=== PATIENT | female | born 1945 | race Caucasian/White ===

== ENCOUNTER → 2016-06-22 | Outpatient (CLI) | payer MEDICARE, OTHER ==
--- NOTE | 2016-06-22 15:45 | REP ---
Clinical: Acute bronchitis . Comparison: None. Technique: PA and lateral. Findings: The mediastinum and cardiac silhouette are normal. The lung mckenna demonstrate chronic-appearing changes without focal consolidation, effusion, or pneumothorax. The skeletal structures are intact and normal. Impression: No focal consolidation. Signed by Parth Santana MD 06/22/2016 03:36 P
== END ==
LOC: M WUC 15:22
PROVIDERS: ATTEND Physician Assistant
DX: J02.9 Acute pharyngitis, unspecified (principal)

== ENCOUNTER → 2016-08-14 | Outpatient (REF) | payer MEDICARE, OTHER ==
[2016-08-14 12:24] LABS: BASO % 0.5 % (0.0-1.0); EOS # 0.2 K/mm3 (0.0-0.50); EOS % 1.9 % (0.0-3.0); LARGE UNSTAINED CELL # 0.2 K/mm3 (0.0-0.4); LARGE UNSTAINED CELL % 1.9 % (0.0-4.0); LYMPH # 1.3 K/mm3 (1.5-4.5); LYMPH % 12.2 % (24.0-44.0); MEAN CORPUSCULAR HGB CONC 33.9 g/dl (32.0-36.5); MEAN CORPUSCULAR VOLUME 100.4 fl (80.0-96.0); MONO # 0.7 K/mm3 (0.0-0.8); MONO % 7.6 % (0.0-5.0); NEUTROPHILS # 6.7 K/mm3 (1.8-7.7); NEUTROPHILS % 75.9 % (36.0-66.0); PLATELET COUNT, AUTOMATED 159 k/mm3 (150-450); RED CELL DISTRIBUTION WIDTH 14.8 % (11.5-14.5); WHITE BLOOD COUNT 8.9 K/mm3 (4.0-10.0)
[2016-08-14 13:00] LABS: ALBUMIN 3.6 GM/DL (3.2-5.2); ALBUMIN/GLOBULIN RATIO 1.16 (1.00-1.93); CALCIUM LEVEL 9.6 MG/DL (8.8-10.2); CREATININE FOR GFR 1.17 MG/DL (0.55-1.02); FREE T4 1.11 NG/DL (0.76-1.46); GLOMERULAR FILTRATION RATE 48.7 (>39); POTASSIUM SERUM 4.5 MEQ/L (3.5-5.1); TOTAL PROTEIN 6.7 GM/DL (6.4-8.2)
== END ==
LOC: M LABDRAW1 11:20
PROVIDERS: ATTEND Family Medicine
DX: E78.5 Hyperlipidemia, unspecified (principal); E03.9 Hypothyroidism, unspecified; E55.9 Vitamin D deficiency, unspecified; N18.3 Chronic kidney disease, stage 3 (moderate)

== ENCOUNTER → 2016-08-21 | Outpatient (CLI) | payer MEDICARE, OTHER ==
[~2016-08-21] MED LIST: ISOVUE-370 76% 100ML VIAL (Q9967) As Ordered ONE
--- NOTE | 2016-08-21 16:23 | REP ---
Clinical: Cough. Technique: Axial contrast enhanced images from the thoracic inlet to the upper abdomen using 100 ml Isovue 370 intravenous contrast material with coronal and sagittal re-formations. Findings: Chronic age-related interstitial changes are appreciated along with mild bronchiectasis and minimal basilar scarring. No consolidation, nodule, or mass lesion. No pleural effusion/reaction or pneumothorax. Mediastinum demonstrates minimal atherosclerotic changes to the thoracic aorta and moderate atherosclerotic changes to the coronary arteries without cardiomegaly or pericardial effusion. No significant adenopathy. Surrounding musculoskeletal structures demonstrate age-related degenerative changes. Limited upper abdomen demonstrates normal bilateral adrenal glands. Impression: 1. Mild chronic age-related interstitial changes with mild lower lobe bronchiectasis and minimal basilar scarring. 2. No acute mediastinal or pleuroparenchymal process. 3. Atherosclerotic changes to the coronary arteries without cardiomegaly. Signed by Parth Santana MD 08/21/2016 04:15 P
== END ==
LOC: M RAD 14:18
PROVIDERS: ATTEND Family Medicine
DX: J47.9 Bronchiectasis, uncomplicated (principal)
CPT/HCPCS: 71260; Q9967

== ENCOUNTER → 2016-09-12 | Outpatient (CLI) | payer MEDICARE, OTHER | LOC: M CARPUL 12:36 | PROVIDERS: ATTEND Physician Assistant Medical | DX: J44.9 Chronic obstructive pulmonary disease, unspecified (principal); R94.2 Abnormal results of pulmonary function studies ==

== ENCOUNTER → 2016-10-03 | Outpatient (CLI) | payer MEDICARE, OTHER ==
[~2016-10-03] MED LIST changes: +ASPI81TA85 PO; +BREO1INH3 INH; +CALC600T60 PO; +FISH1000 PO; +HYDR25TA6 PO; -ISOVUE-370 76% 100ML VIAL (Q9967) As Ordered ONE; +LEVO75TA4 PO; +METO100T5 PO; +MULTCAP8 PO; +SPIR50TA2 PO; +[UNRECOGNIZED DRUG - CODE] PO
--- NOTE | 2016-10-03 15:00 | REP ---
DIGITAL DIAGNOSTIC UNILATERAL RIGHT BREAST MAMMOGRAPHY AND FOCUSED RIGHT BREAST SONOGRAPHY: HISTORY: 6-month follow-up of ultrasound-guided needle biopsy of the right breast in the retroareolar region. Pathologic results intraductal papilloma. Comparison mammography is from February 20, 2016. Comparison sonography is from February 20, 2020 16 as well. MAMMOGRAPHIC FINDINGS: CC and MLO views of the right breast were obtained. The nodular density observed previously is no longer apparent. Scattered fibroglandular elements are seen. No nodular density is seen. No spiculation or architectural distortion is observed. No microcalcification is seen. SONOGRAPHIC FINDINGS: The right breast is scanned in the retroareolar region. A few slightly prominent ducts are seen. No cyst or cystic lesion is observed. No evidence of acoustic shadowing or architectural distortion seen. IMPRESSION: BIRADS category II benign right breast imaging. Repeat bilateral screening mammography recommended annually. BI-RADS/ACR category 2 mammogram. Benign finding(s). Routine annual screening mammography (for women over age 40). This mammogram was interpreted with the aid of an FDA-approved computer-aided detection system. The patient states she/he had a clinical breast exam in July 2016 The patient letter being requested is M2. Signed by Raj Ibrahmi MD 10/03/2016 05:03 P
== END ==
LOC: M RAD 08:31
PROVIDERS: ATTEND Family Medicine
DX: D24.1 Benign neoplasm of right breast (principal)
CPT/HCPCS: 76642; G0206

== ENCOUNTER → 2016-10-10 | Outpatient (CLI) | payer MEDICARE, OTHER ==
[~2016-10-10] VITALS: Ht 162.6 cm; Wt 99.8 kg
[~2016-10-10] MED LIST changes: +LIDOCAINE 2% INJ 100 MG/5 ML SDV (FOR ANES.) As Ordered ONE; +NS 1,000 ML IV ONE; +PROPOFOL 200 MG/20 ML VIAL As Ordered ONE; +SIMETHICONE 40MG/0.6ML DROPS 30ML As Ordered ONE
--- NOTE | 2016-10-10 08:58 | ROOR ---
Patient Name: Jania Leung Procedure Date: 10/10/2016 8:30 AM Date of : 1945 Age: 71 Room: [facility] Gender: Female Note Status: Finalized Procedure: Total Colonoscopy to Cecum Indications: Colon cancer screening in patient at increased risk: Colorectal cancer in mother, Last colonoscopy: 2011 Providers: Bob Ramirez MD Referring MD: Bandar Arrieta MD Requesting Provider: Medicines: Monitored Anesthesia Care Complications: No immediate complications. Procedure: Pre-Anesthesia Assessment: - The heart rate, respiratory rate, oxygen saturations, blood pressure, adequacy of pulmonary ventilation, and response to care were monitored throughout the procedure. The Colonoscope was introduced through the anus and advanced to the cecum, identified by appendiceal orifice and ileocecal valve. The colonoscopy was performed without difficulty. The patient tolerated the procedure well. The quality of the bowel preparation was excellent. Findings: The perianal and digital rectal examinations were normal. Multiple small and large-mouthed diverticula were found in the recto-sigmoid colon, sigmoid colon and descending colon. The exam was otherwise without abnormality on direct and retroflexion views. Impression: - Diverticulosis in the recto-sigmoid colon, in the sigmoid colon and in the descending colon. - The examination was otherwise normal on direct and retroflexion views. - No specimens collected. - The exam was otherwise normal to the cecum. Recommendation: - Patient has a contact number available for emergencies. The signs and symptoms of potential delayed complications were discussed with the patient. Return to normal activities tomorrow. Written discharge instructions were provided to the patient. - High fiber diet. - Discharge patient to home. - Continue present medications. - Repeat colonoscopy in 5 years for screening purposes. - Return to referring physician. - The findings and recommendations were discussed with the patient's family. Bob Ramirez MD Bob Ramirez MD 10/10/2016 8:57:47 AM This report has been signed electronically. Number of Addenda: 0 Note Initiated On: 10/10/2016 8:30 AM Estimated Blood Loss: Estimated blood loss: none.
[2016-10-10 09:22] VITALS: BP 121/67
== END ==
LOC: M OPP 07:30
PROVIDERS: ATTEND Internal Medicine Gastroenterology
DX: Z12.11 Encounter for screening for malignant neoplasm of colon (principal); Z80.0 Family history of malignant neoplasm of digestive organs; K57.30 Diverticulosis of large intestine without perforation or abscess without bleeding; I10 Essential (primary) hypertension; E03.9 Hypothyroidism, unspecified; J44.9 Chronic obstructive pulmonary disease, unspecified; M19.90 Unspecified osteoarthritis, unspecified site; Z87.891 Personal history of nicotine dependence; Z79.82 Long term (current) use of aspirin; Z79.899 Other long term (current) drug therapy

== ENCOUNTER → 2016-12-17 | Outpatient (CLI) | payer MEDICARE, OTHER ==
[~2016-12-17] MED LIST changes: -LIDOCAINE 2% INJ 100 MG/5 ML SDV (FOR ANES.) As Ordered ONE; -NS 1,000 ML IV ONE; -PROPOFOL 200 MG/20 ML VIAL As Ordered ONE; -SIMETHICONE 40MG/0.6ML DROPS 30ML As Ordered ONE
--- NOTE | 2016-12-17 12:41 | REP ---
PA and lateral chest: Comparisons 06/22/2016. There are no acute infiltrates or effusions. There are no masses. There is chronic interstitial coarsening, unchanged, compatible with chronic lung disease. Cardiac size is upper normal. The marshall, mediastinum, and bony thorax are unremarkable. Impression: Chronic mild interstitial coarsening compatible with chronic lung disease. No acute infiltrates or effusions. No masses. Signed by Nahid Austin MD 12/17/2016 12:32 P
== END ==
LOC: M WUC 11:09
PROVIDERS: ATTEND Physician Assistant
DX: R05 Cough (principal)

== ENCOUNTER → 2017-01-21 | Outpatient (REF) | payer MEDICARE, OTHER ==
[2017-01-21 18:40] LABS: VITAMIN B12 LEVEL 667 PG/ML (247-911)
[2017-01-21 18:43] LABS: ALBUMIN 3.8 GM/DL (3.2-5.2); ALBUMIN/GLOBULIN RATIO 1.19 (1.00-1.93); ALKALINE PHOSPHATASE 70 U/L (45-117); ALT/SGPT 30 U/L (12-78); ANION GAP 6 MEQ/L (8-16); AST/SGOT 27 U/L (15-37); BILIRUBIN,TOTAL 2.2 MG/DL (0.2-1.0); BLOOD UREA NITROGEN 31 MG/DL (7-18); CALCIUM LEVEL 9.8 MG/DL (8.8-10.2); CARBON DIOXIDE LEVEL 31 MEQ/L (21-32); CHLORIDE LEVEL 101 MEQ/L (98-107); CREATININE FOR GFR 1.28 MG/DL (0.55-1.02); GLOMERULAR FILTRATION RATE 43.8 (>39); GLUCOSE, FASTING 79 MG/DL (83-110); MAGNESIUM LEVEL 2.1 MG/DL (1.8-2.4); POTASSIUM SERUM 4.6 MEQ/L (3.5-5.1); SODIUM LEVEL 138 MEQ/L (136-145)
[2017-01-21 20:45] LABS: MEAN CORPUSCULAR HEMOGLOBIN 33.4 pg (27.0-33.0); MEAN CORPUSCULAR HGB CONC 33.6 g/dl (32.0-36.5); MEAN CORPUSCULAR VOLUME 99.4 fl (80.0-96.0); RED CELL DISTRIBUTION WIDTH 14.2 % (11.5-14.5)
[2017-01-21 22:14] LABS: EOSINOPHILS 1 % (0-5)
[2017-01-21 22:37] LABS: CBCMD ORDERED? YES (YES)
[2017-01-22 11:06] LABS: PRETREATED FOLATE FOR RBCFOL 15.9 NG/ML
[2017-01-22 11:43] LABS: ALBUMIN 4.14 GM/DL (3.29-5.55); ALBUMIN % 59.2 % (55.8-66.1); GAMMA GLOBULIN % 14.2 % (11.1-18.8)
== END ==
LOC: M SFHCPLAZ 14:50
PROVIDERS: ATTEND Family Medicine
DX: I10 Essential (primary) hypertension (principal); R05 Cough; Z23 Encounter for immunization

== ENCOUNTER → 2017-01-22 | Outpatient (REF) | payer MEDICARE, OTHER | LOC: M SFHCPLAZ 10:38 | PROVIDERS: ATTEND Physician Assistant Medical | DX: I25.10 Atherosclerotic heart disease of native coronary artery without angina pectoris (principal) ==

== ENCOUNTER → 2017-02-18 | Outpatient (CLI) | payer MEDICARE, OTHER ==
--- NOTE | 2017-02-19 09:58 | REP ---
Clinical: Pulmonary arterial hypertension. Technique: Axial contrast enhanced images from the thoracic inlet to the upper abdomen using 100 ml Isovue 370 intravenous contrast material with multiplanar MIP re-formations. Comparison: 08/21/2016. Findings: Satisfactory enhancement of the pulmonary vasculature is achieved and no filling defects are identified to suggest pulmonary embolus. The pulmonary arteries are enlarged and prominent in appearance. The main pulmonary artery measures approximately 34 mm diameter while the right and left main pulmonary arteries measure approximately 28 mm diameter each with significantly prominent branch vessels extending throughout the bilateral lung mckenna. While mild cardiomegaly suggested, the right ventricle is normal in appearance and contour without significant myocardial thickening abnormality by CT. The thoracic aorta appears normal and descending aorta measures 2.6 cm maximal diameter. The bilateral lung mckenna are relatively well aerated and without significant interstitial disease. No pleural effusion. No pneumothorax. Tracheobronchial tree is patent. No significant axillary, hilar, or mediastinal adenopathy. Surrounding musculoskeletal structures are intact. Impression: Enlarged, engorged pulmonary arteries including main pulmonary artery measuring 34 mm diameter are suggestive of idiopathic pulmonary arterial hypertension. There is no evidence for pulmonary embolus, pulmonary parenchymal interstitial disease or abnormality to the right cardiac ventricle. Signed by Parth Santana MD 02/19/2017 09:50 A
== END ==
LOC: M RAD 17:03
PROVIDERS: ATTEND Family Medicine
DX: I27.20 Pulmonary hypertension, unspecified (principal)

== ENCOUNTER → 2017-02-20 | Outpatient (REF) | payer MEDICARE, OTHER ==
[2017-02-20 12:50] LABS: ALBUMIN 3.7 GM/DL (3.2-5.2); ALBUMIN/GLOBULIN RATIO 1.16 (1.00-1.93); ALKALINE PHOSPHATASE 64 U/L (45-117); ALT/SGPT 23 U/L (12-78); ANION GAP 7 MEQ/L (8-16); AST/SGOT 23 U/L (7-37); BILIRUBIN,DIRECT 0.5 MG/DL (0.0-0.2); BILIRUBIN,TOTAL 2.3 MG/DL (0.2-1.0); BLOOD UREA NITROGEN 29 MG/DL (7-18); CALCIUM LEVEL 9.7 MG/DL (8.8-10.2); CARBON DIOXIDE LEVEL 31 MEQ/L (21-32); CHLORIDE LEVEL 102 MEQ/L (98-107); CREATININE FOR GFR 1.25 MG/DL (0.55-1.02); GLUCOSE, FASTING 104 MG/DL (83-110); MAGNESIUM LEVEL 2.6 MG/DL (1.8-2.4); POTASSIUM SERUM 4.6 MEQ/L (3.5-5.1); SODIUM LEVEL 140 MEQ/L (136-145); TOTAL PROTEIN 6.9 GM/DL (6.4-8.2)
== END ==
LOC: M SFHCPLAZ 10:21
PROVIDERS: ATTEND Family Medicine
DX: I27.21 Secondary pulmonary arterial hypertension (principal); I10 Essential (primary) hypertension; R06.09 Other forms of dyspnea

== ENCOUNTER → 2017-03-06 | Outpatient (CLI) | payer MEDICARE, OTHER ==
--- NOTE | 2017-03-06 10:03 | REP ---
COMPLETE ABDOMINAL ULTRASOUND: 03/06/2017 COMPARISON: CT angio chest 02/18/2017 showing portion of the liver. CLINICAL HISTORY: Pulmonary artery hypertension, epigastric pain. FINDINGS: Sonographic evaluation shows the liver homogeneous in echotexture, mildly hyperechoic that may reflect some underlying fatty infiltration. I see no focal hepatic mass or intrahepatic biliary dilatation. Gallbladder has no wall thickening, mass, or stone. There is no pericholecystic fluid. No mass or tenderness on exam. Common duct is 5.5 mm without a filling defect. Pancreas is limited in evaluation due to some gas shadowing but without mass, adjacent fluid collection, or dilated duct. The spleen measures of 12.9 x 10.3 x 5.1 cm and is homogeneous. Not grossly enlarged by visual inspection, no discrete splenic lesion. The right kidney 9.4 x 5.9 x 4.8 cm. The left kidney 11.1 x 4.7 x 4.8 cm. Neither kidney shows a focal lesion. The aorta is not visualized due to extensive gas. IMPRESSION: 1. There may be some mild fatty infiltration with the gallbladder intact and the common duct 5.5 mm without a filling defect or dilatation. 2. Pancreas grossly unremarkable on the portion seen, and the spleen is visually unremarkable with homogeneous echoes and no lesion visible its size slightly large by splenic index measurement, as described above. 3. Bilateral kidneys without acute finding. No ascites. Splenic index mildly elevated, 677. Normal range less than 480. Signed by Nikolai Antonio MD 03/06/2017 07:31 P
== END ==
LOC: M RAD 06:56
PROVIDERS: ATTEND Family Medicine
DX: I27.20 Pulmonary hypertension, unspecified (principal)

== ENCOUNTER → 2017-03-08 | Outpatient (CLI) | payer MEDICARE, OTHER ==
--- NOTE | 2017-03-08 14:04 | REP ---
Chest two views HISTORY: Pulmonary hypertension Comparison: 12/17/2016 An increase in interstitial markings is present in the lungs consistent with chronic interstitial change. The cardiac silhouette is enlarged. The pulmonary vasculature is normal in appearance. The bony structure is intact. IMPRESSION: 1. Chronic interstitial change. 2. Cardiomegaly. Signed by Lalo Galloway MD 03/08/2017 01:55 P
--- NOTE | 2017-03-08 17:04 | REP ---
HISTORY: Dyspnea. There are no prior ventilation perfusion lung scans for comparison. Previous CT angio chest 02/18/2017 showed no evidence of a pulmonary embolus. After the inhalation of 1 mCi of technetium 99m DTPA a ventilation lung study was performed. After the intravenous administration of 5.4 mCi of technetium 99m MAA a perfusion lung study was performed. There are no ventilation perfusion mismatches that would be considered consistent with pulmonary emboli. There are a few matching defects in each lung. IMPRESSION: Indeterminate V/Q scan as described above. Signed by Isaias Ash DO 03/08/2017 07:07 P
== END ==
LOC: M RAD 12:30
PROVIDERS: ATTEND Family Medicine
DX: I27.21 Secondary pulmonary arterial hypertension (principal); I51.7 Cardiomegaly; J98.4 Other disorders of lung
CPT/HCPCS: 71020; 78582; 82803; A9540; A9567

== ENCOUNTER → 2017-03-08 | Outpatient (CLI) | payer MEDICARE, OTHER ==
[2017-03-08 14:05] LABS: ABG BASE EXCESS -0.2 (-2.0-2.0); ABG HCO3 23.3 MEQ/L (22.0-26.0); ABG PARTIAL PRESSURE CO2 35.2 mmHg (35.0-45.0); ABG STANDARD HCO3 23.9 MEQ/L (22.0-26.0); ABG TOTAL CO2 24.3 MEQ/L (23.0-31.0); ABG pH (ARTERIAL) 7.438 UNITS (7.350-7.450)
[2017-03-08 14:14] LABS: ABG PARTIAL PRESSURE O2 44.8 mmHg (75.0-100.0)
== END ==
LOC: M LAB 13:35
PROVIDERS: ATTEND Family Medicine
DX: I27.21 Secondary pulmonary arterial hypertension (principal)

== ENCOUNTER → 2017-05-06 | Outpatient (REF) | payer MEDICARE, OTHER ==
[2017-05-06 10:22] LABS: BASO # 0.1 10^3/uL (0.0-0.2); BASO % 1.3 % (0.0-1.0); EOS # 0.2 10^3/uL (0.0-0.50); EOS % 3.4 % (0.0-3.0); HEMOGLOBIN 15.7 g/dl (12.0-16.0); IMMATURE GRANULOCYTE % 0.6 % (0-0); LYMPH # 0.7 10^3/uL (1.5-4.5); LYMPH % 12.3 % (24.0-44.0); MEAN CORPUSCULAR HEMOGLOBIN 31.9 pg (27.0-33.0); MEAN CORPUSCULAR HGB CONC 32.7 g/dl (32.0-36.5); MEAN CORPUSCULAR VOLUME 97.6 fl (80.0-96.0); MONO # 0.7 10^3/uL (0.0-0.8); MONO % 12.5 % (0.0-5.0); NEUTROPHILS # 3.7 10^3/uL (1.8-7.7); NEUTROPHILS % 69.9 % (36.0-66.0); PLATELET COUNT, AUTOMATED 143 10^3/uL (150-450); RED BLOOD COUNT 4.92 10^6/uL (4.00-5.40); RETIC HEMOGLOBIN EQUIVALENT 35.3 pg (24-36); RETICULOCYTE # 139.7 10^9/L (17-77); RETICULOCYTE % 2.8 % (0.5-1.5); WHITE BLOOD COUNT 5.3 10^3/uL (4.0-10.0)
[2017-05-06 10:35] LABS: ALBUMIN 3.7 GM/DL (3.2-5.2); ALBUMIN/GLOBULIN RATIO 1.06 (1.00-1.93); ALKALINE PHOSPHATASE 94 U/L (45-117); ALT/SGPT 306 U/L (12-78); ANION GAP 6 MEQ/L (8-16); AST/SGOT 268 U/L (7-37); BILIRUBIN,TOTAL 1.6 MG/DL (0.2-1.0); BLOOD UREA NITROGEN 25 MG/DL (7-18); CALCIUM LEVEL 9.1 MG/DL (8.8-10.2); CARBON DIOXIDE LEVEL 30 MEQ/L (21-32); CHLORIDE LEVEL 106 MEQ/L (98-107); CREATININE FOR GFR 1.05 MG/DL (0.55-1.30); FREE T4 1.08 NG/DL (0.76-1.46); GLUCOSE, FASTING 93 MG/DL (70-100); MAGNESIUM LEVEL 2.3 MG/DL (1.8-2.4); POTASSIUM SERUM 3.9 MEQ/L (3.5-5.1); SODIUM LEVEL 142 MEQ/L (136-145); TOTAL PROTEIN 7.2 GM/DL (6.4-8.2)
[2017-05-06 10:46] LABS: PTH INTACT 86.9 PG/ML (14.0-72.0); TOTAL 25(OH) VITAMIN D 27.4 NG/ML (30.0-100.0)
== END ==
LOC: M LABDRAW1 09:25
DX: D75.89 Other specified diseases of blood and blood-forming organs (principal); N18.3 Chronic kidney disease, stage 3 (moderate); E03.9 Hypothyroidism, unspecified; E55.9 Vitamin D deficiency, unspecified
CPT/HCPCS: 83735

== ENCOUNTER → 2017-05-08 | Outpatient (REF) | payer MEDICARE, OTHER ==
[2017-05-08 11:54] LABS: HEMATOCRIT 47.9 % (36.0-47.0); HEMOGLOBIN 15.5 g/dl (12.0-16.0); MEAN CORPUSCULAR HEMOGLOBIN 32.2 pg (27.0-33.0); MEAN CORPUSCULAR HGB CONC 32.4 g/dl (32.0-36.5); MEAN CORPUSCULAR VOLUME 99.4 fl (80.0-96.0); PLATELET COUNT, AUTOMATED 153 10^3/uL (150-450); RED BLOOD COUNT 4.82 10^6/uL (4.00-5.40); RED CELL DISTRIBUTION WIDTH 13.2 % (11.5-14.5); WHITE BLOOD COUNT 5.7 10^3/uL (4.0-10.0)
[2017-05-08 12:11] LABS: ANION GAP 8 MEQ/L (8-16); BLOOD UREA NITROGEN 24 MG/DL (7-18); CALCIUM LEVEL 9.2 MG/DL (8.8-10.2); CARBON DIOXIDE LEVEL 29 MEQ/L (21-32); CHLORIDE LEVEL 104 MEQ/L (98-107); CREATININE FOR GFR 1.05 MG/DL (0.55-1.30); GLUCOSE, FASTING 87 MG/DL (70-100); NT-PRO BNP 1230 PG/ML (<125); POTASSIUM SERUM 4.1 MEQ/L (3.5-5.1); SODIUM LEVEL 141 MEQ/L (136-145)
== END ==
LOC: M LABDRAW1 11:32
DX: R06.00 Dyspnea, unspecified (principal); I50.9 Heart failure, unspecified
CPT/HCPCS: 80048

== ENCOUNTER → 2017-07-24 | Outpatient (REF) | payer MEDICARE, OTHER ==
[2017-07-24 11:43] LABS: HEMATOCRIT 47.3 % (36.0-47.0); MEAN CORPUSCULAR HEMOGLOBIN 32.4 pg (27.0-33.0); MEAN CORPUSCULAR HGB CONC 33.8 g/dl (32.0-36.5); MEAN CORPUSCULAR VOLUME 95.7 fl (80.0-96.0); PLATELET COUNT, AUTOMATED 136 10^3/uL (150-450); RED BLOOD COUNT 4.94 10^6/uL (4.00-5.40); RED CELL DISTRIBUTION WIDTH 13.4 % (11.5-14.5); WHITE BLOOD COUNT 5.6 10^3/uL (4.0-10.0)
[2017-07-24 11:49] LABS: ANION GAP 5 MEQ/L (8-16); BLOOD UREA NITROGEN 26 MG/DL (7-18); CALCIUM LEVEL 9.3 MG/DL (8.8-10.2); CARBON DIOXIDE LEVEL 31 MEQ/L (21-32); CHLORIDE LEVEL 106 MEQ/L (98-107); CREATININE FOR GFR 1.14 MG/DL (0.55-1.30); FERRITIN 127 NG/ML (8-252); GLUCOSE, FASTING 86 MG/DL (70-100); IRON (FE) 112 UG/DL (50-170); NT-PRO BNP 539 PG/ML (<125); PERCENT SATURATION 33.9 % (13.2-45.0); POTASSIUM SERUM 4.1 MEQ/L (3.5-5.1); SODIUM LEVEL 142 MEQ/L (136-145); TOTAL IRON BINDING CAPACITY 330 UG/DL (250-450)
== END ==
LOC: M LABDRAW1 10:26
DX: I27.21 Secondary pulmonary arterial hypertension (principal)
CPT/HCPCS: 83550

== ENCOUNTER → 2017-08-30 | Outpatient (REF) | payer MEDICARE, OTHER | LOC: M SFHCPLAZ 11:08 | DX: N18.3 Chronic kidney disease, stage 3 (moderate) (principal); E80.4 Gilbert syndrome; E55.9 Vitamin D deficiency, unspecified; E03.9 Hypothyroidism, unspecified; Z53.8 Procedure and treatment not carried out for other reasons ==

== ENCOUNTER → 2017-08-30 | Outpatient (REF) | payer MEDICARE, OTHER ==
[2017-08-30 19:43] LABS: ALPHA FETOPROTEIN TUMOR QUANT 4.3 NG/ML (<8.1); TOTAL 25(OH) VITAMIN D 28.4 NG/ML (30.0-100.0)
[2017-08-30 19:44] LABS: ALBUMIN 4.1 GM/DL (3.2-5.2); ALBUMIN/GLOBULIN RATIO 1.21 (1.00-1.93); ALKALINE PHOSPHATASE 66 U/L (45-117); ALT/SGPT 22 U/L (12-78); ANION GAP 7 MEQ/L (8-16); AST/SGOT 20 U/L (7-37); BILIRUBIN,DIRECT 0.3 MG/DL (0.0-0.2); BILIRUBIN,TOTAL 1.4 MG/DL (0.2-1.0); BLOOD UREA NITROGEN 29 MG/DL (7-18); CALCIUM LEVEL 9.7 MG/DL (8.8-10.2); CARBON DIOXIDE LEVEL 31 MEQ/L (21-32); CHLORIDE LEVEL 103 MEQ/L (98-107); CREATININE FOR GFR 1.23 MG/DL (0.55-1.30); ESTIMATED AVERAGE GLUCOSE 105 MG/DL (60-110); FREE T4 1.12 NG/DL (0.76-1.46); GLOMERULAR FILTRATION RATE 45.8 (>39); GLUCOSE, FASTING 72 MG/DL (70-100); HEMOGLOBIN A1c 5.3 %; NT-PRO BNP 564 PG/ML (<125); POTASSIUM SERUM 4.2 MEQ/L (3.5-5.1); PTH INTACT 46.4 PG/ML (18.5-88.0); SODIUM LEVEL 141 MEQ/L (136-145); TOTAL PROTEIN 7.5 GM/DL (6.4-8.2)
== END ==
LOC: M LABDRAW1 17:36
DX: E80.4 Gilbert syndrome (principal); N18.3 Chronic kidney disease, stage 3 (moderate); E03.9 Hypothyroidism, unspecified; E55.9 Vitamin D deficiency, unspecified; E66.09 Other obesity due to excess calories; Z68.35 Body mass index [BMI] 35.0-35.9, adult; I27.21 Secondary pulmonary arterial hypertension; D75.89 Other specified diseases of blood and blood-forming organs; J44.9 Chronic obstructive pulmonary disease, unspecified; D24.1 Benign neoplasm of right breast; E78.5 Hyperlipidemia, unspecified; M85.80 Other specified disorders of bone density and structure, unspecified site; L71.9 Rosacea, unspecified; E66.9 Obesity, unspecified; R73.01 Impaired fasting glucose; L65.9 Nonscarring hair loss, unspecified; Z79.899 Other long term (current) drug therapy
CPT/HCPCS: 82248

== ENCOUNTER → 2017-10-04 | Outpatient (CLI) | payer MEDICARE, OTHER | LOC: M WHC 10:24 | DX: Z12.31 Encounter for screening mammogram for malignant neoplasm of breast (principal); Z92.89 Personal history of other medical treatment; Z92.0 Personal history of contraception | CPT/HCPCS: 77067 ==

== ENCOUNTER → 2017-10-29 | Outpatient (REF) | payer MEDICARE, OTHER ==
[2017-10-29 12:27] LABS: HEMATOCRIT 49.5 % (36.0-47.0); HEMOGLOBIN 16.3 g/dl (12.0-15.5); MEAN CORPUSCULAR HEMOGLOBIN 32.3 pg (27.0-33.0); MEAN CORPUSCULAR HGB CONC 32.9 g/dl (32.0-36.5); MEAN CORPUSCULAR VOLUME 98.2 fl (80.0-96.0); PLATELET COUNT, AUTOMATED 151 10^3/uL (150-450); RED BLOOD COUNT 5.04 10^6/uL (4.00-5.40); RED CELL DISTRIBUTION WIDTH 12.9 % (11.5-14.5); WHITE BLOOD COUNT 6.3 10^3/uL (4.0-10.0)
[2017-10-29 13:02] LABS: ANION GAP 8 MEQ/L (8-16); BLOOD UREA NITROGEN 30 MG/DL (7-18); CALCIUM LEVEL 9.8 MG/DL (8.8-10.2); CARBON DIOXIDE LEVEL 29 MEQ/L (21-32); CHLORIDE LEVEL 105 MEQ/L (98-107); CREATININE FOR GFR 1.29 MG/DL (0.55-1.30); GLOMERULAR FILTRATION RATE 43.2 (>39); GLUCOSE, FASTING 85 MG/DL (70-100); NT-PRO BNP 437 PG/ML (<125); POTASSIUM SERUM 4.2 MEQ/L (3.5-5.1); SODIUM LEVEL 142 MEQ/L (136-145)
== END ==
LOC: M LABDRAW1 11:39
DX: I50.9 Heart failure, unspecified (principal); I27.21 Secondary pulmonary arterial hypertension
CPT/HCPCS: 80048

== ENCOUNTER → 2018-06-06 | Outpatient (REF) | payer MEDICARE, OTHER ==
[~2018-06-06] MED LIST changes: -SPIR50TA2 PO; +SPIR50TA4 PO
[2018-06-06 14:16] LABS: BASO % 0.5 % (0.0-1.0); EOS # 0.2 10^3/uL (0.0-0.50); EOS % 2.3 % (0.0-3.0); HEMATOCRIT 51.5 % (36.0-47.0); HEMOGLOBIN 17.3 g/dl (12.0-15.5); LYMPH # 1.1 10^3/uL (1.5-4.5); LYMPH % 14.9 % (24.0-44.0); MEAN CORPUSCULAR HEMOGLOBIN 32.8 pg (27.0-33.0); MEAN CORPUSCULAR HGB CONC 33.6 g/dl (32.0-36.5); MEAN CORPUSCULAR VOLUME 97.7 fl (80.0-96.0); MONO # 0.6 10^3/uL (0.0-0.8); MONO % 8.6 % (0.0-5.0); NEUTROPHILS # 5.4 10^3/uL (1.8-7.7); NEUTROPHILS % 73.3 % (36.0-66.0); PLATELET COUNT, AUTOMATED 154 10^3/uL (150-450); RED BLOOD COUNT 5.27 10^6/uL (4.00-5.40); WHITE BLOOD COUNT 7.3 10^3/uL (4.0-10.0)
[2018-06-06 14:45] LABS: HEMOGLOBIN A1c 5.2 %
[2018-06-06 14:46] LABS: ALBUMIN 3.9 GM/DL (3.2-5.2); BILIRUBIN,TOTAL 1.3 MG/DL (0.2-1.0); CALCIUM LEVEL 9.8 MG/DL (8.8-10.2); CHOLESTEROL RISK RATIO 5.54 (<5); CREATININE FOR GFR 1.3 MG/DL (0.55-1.30); GLOMERULAR FILTRATION RATE 42.9 (>39); MAGNESIUM LEVEL 2.6 MG/DL (1.8-2.4); POTASSIUM SERUM 4.4 MEQ/L (3.5-5.1); TOTAL PROTEIN 7.2 GM/DL (6.4-8.2)
[2018-06-06 14:47] LABS: C REACTIVE PROTEIN QUANTITATIV 0.46 MG/DL (0.00-0.30); FREE T4 1.06 NG/DL (0.76-1.46); THYROID STIMULATING HORMONE 1.21 uIU/ML (0.358-3.740)
[2018-06-06 14:48] LABS: PTH INTACT 95.9 PG/ML (18.5-88.0); TOTAL 25(OH) VITAMIN D 53.8 NG/ML (30.0-100.0)
== END ==
LOC: M SFHCPLAZ 10:54
PROVIDERS: ATTEND Physician Assistant Medical
DX: E78.5 Hyperlipidemia, unspecified (principal); R73.01 Impaired fasting glucose; I12.9 Hypertensive chronic kidney disease with stage 1 through stage 4 chronic kidney disease, or unspecified chronic kidney disease; E03.9 Hypothyroidism, unspecified; E55.9 Vitamin D deficiency, unspecified; N18.3 Chronic kidney disease, stage 3 (moderate); I27.21 Secondary pulmonary arterial hypertension; I25.10 Atherosclerotic heart disease of native coronary artery without angina pectoris
CPT/HCPCS: 36415; 80053; 80061; 82306; 83036; 83735; 83880; 83970; 84439; 84443; 85025; 86140; G0463

== ENCOUNTER → 2018-06-19 | Outpatient (CLI) | payer MEDICARE, OTHER ==
--- NOTE | 2018-06-24 13:33 | DEXA ---
AP SPINE L1 - L4 1.393 1.6 3.3 LT FEMUR TOTAL 1.002 0.0 1.6 LT NECK 0.936 -0.7 1.1 RT FEMUR TOTAL 0.959 -0.4 1.2 RT NECK 0.887 -1.1 0.7 TOTAL BODY TOTAL OTHER COMMENTS: Normal bone densitometry of the spine. Normal bone densitometry of the left hip. There is low bone density of the right hip. FOLLOW-UP: Recommendation for the next bone density exam: 2 years. NOHEMY
== END ==
LOC: M WHC 08:18
PROVIDERS: ATTEND Physician Assistant Medical
DX: M85.851 Other specified disorders of bone density and structure, right thigh (principal)

== ENCOUNTER → 2018-10-06 | Outpatient (CLI) | payer MEDICARE, OTHER ==
--- NOTE | 2018-10-06 09:56 | REPMRS ---
Patient History 3D TOMOSYNTHESIS WAS PERFORMED. [facility] lifetime risk for breast cancer is 3.1%. The patient states she has not had a clinical breast exam in over a year. Patient is postmenopausal and has history of other cancer. Family history of colorectal cancer at age 85 in mother. Benign US guided breast biopsy of the right breast, March 29, 2016. Took hormonal contraceptives for 3 months. Digital Woman Screen Mammo: October 06, 2018 - Exam #: [id number] Bilateral CC and MLO view(s) were taken. Technologist: Fany Segal, Technologist Prior study comparison: October 04, 2017, bilateral digital woman screen mammo performed at [facility]. October 03, 2016, right breast digital mammo diagnostic unilateral, performed at [facility]. FINDINGS: There are scattered fibroglandular densities. There has been no change in the appearance of the mammogram from the prior studies. There is a mild amount of residual fibroglandular tissue which is fairly symmetric. There is no interval development of dominant mass, architectural distortion, or clustered microcalcification suggestive of malignancy. Assessment: BI-RADS/ACR category 1 mammogram. Negative Mammogram. Recommendation Routine screening mammogram in 1 year (for women over age 40). This mammogram was interpreted with the aid of an FDA-approved computer-aided dectection system. Electronically Signed By: Nahid Sanchez MD 10/06/18 [id number]
== END ==
LOC: M WHC 07:57
PROVIDERS: ATTEND Physician Assistant Medical
DX: Z12.31 Encounter for screening mammogram for malignant neoplasm of breast (principal); D24.1 Benign neoplasm of right breast; Z78.0 Asymptomatic menopausal state; Z92.0 Personal history of contraception

== ENCOUNTER → 2018-11-24 | Outpatient (REF) | payer MEDICARE, OTHER ==
[2018-11-24 13:49] LABS: CALCIUM LEVEL 9.9 MG/DL (8.8-10.2); CREATININE FOR GFR 1.24 MG/DL (0.55-1.30); GLOMERULAR FILTRATION RATE 45.1 (>39); POTASSIUM SERUM 4.2 MEQ/L (3.5-5.1)
[2018-11-24 13:50] LABS: ALBUMIN 3.9 GM/DL (3.2-5.2); BILIRUBIN,TOTAL 1.5 MG/DL (0.2-1.0); CHOLESTEROL RISK RATIO 3.891 (<5); MAGNESIUM LEVEL 2.7 MG/DL (1.8-2.4); TOTAL PROTEIN 7.2 GM/DL (6.4-8.2)
[2018-11-24 13:57] LABS: PTH INTACT 80.4 PG/ML (18.5-88.0); TOTAL 25(OH) VITAMIN D 60.9 NG/ML (30.0-100.0)
== END ==
LOC: M LABDRAW1 12:15
PROVIDERS: ATTEND Family Medicine
DX: N18.3 Chronic kidney disease, stage 3 (moderate) (principal); E78.5 Hyperlipidemia, unspecified